=== PATIENT | female | born 2000 | race Caucasian/White ===

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

== ENCOUNTER 2021-03-28 02:03 | Emergency (ER) | payer SELFPAY ==
[2021-03-28 02:25] VITALS: BMI 22.9
[2021-03-28 05:05] LABS: BASO % 0.2 % (0-2.0); EOS % 0.9 % (0-4.5); HEMATOCRIT 35.5 % (32.4-45.2); HEMOGLOBIN 12.5 GM/dL (10.7-15.3); LYMPH % 32.9 % (8-40); MCH 31.2 pg (25.7-33.7); MCHC 35.3 g/dl (32.0-36.0); MEAN CELL VOLUME 88.6 fl (80-96); MEAN PLT VOLUME 8.1 fl (7.5-11.1); MONO % 5.4 % (3.8-10.2); NEUT % 60.6 % (42.8-82.8); PLATELET COUNT 199 K/MM3 (134-434); RBC 4.01 M/mm3 (3.60-5.2); RDW 13.6 % (11.6-15.6); WHITE BLOOD COUNT 7.2 K/mm3 (4.0-10.0)
[2021-03-28 05:24] LABS: INR 1.07 (0.83-1.09); PROTHROMBIN TIME (PATIENT) 12.9 SEC (9.7-13.0)
[2021-03-28 05:27] LABS: ACTIVATED PTT 31.1 SECONDS (25.2-36.5); CALCIUM 8.1 mg/dL (8.5-10.1)
[2021-03-28 05:28] LABS: ALBUMIN 3.8 g/dl (3.4-5.0); BLOOD UREA NITROGEN 7.7 mg/dL (7-18)
[2021-03-28 05:31] LABS: CREATININE 0.5 mg/dL (0.55-1.3)
[2021-03-28 05:33] LABS: BILIRUBIN,TOTAL 0.3 mg/dL (0.2-1); TOT PROT 7.4 g/dl (6.4-8.2)
[2021-03-28 05:56] LABS: EPI CELLS 6 /uL (0-25.1); HYALINE CASTS 1 /uL (0-3.1); URINE APPEARANCE CLEAR; URINE BACTERIA 63 /uL (0-1359); URINE BILIRUBIN NEGATIVE (NEGATIVE); URINE COLOR YELLOW; URINE GLUCOSE (UA) NEGATIVE (NEGATIVE); URINE KETONE NEGATIVE (NEGATIVE); URINE LEUK ESTERASE NEGATIVE (NEGATIVE); URINE NITRITE NEGATIVE (NEGATIVE); URINE PROTEIN NEGATIVE (NEGATIVE); URINE RBC 5 /uL (0-23.9); URINE WBC 2 /uL (0-25.8)
[2021-03-28] MEDS ORDERED: POTASSIUM CHLORIDE TABS 20 MEQ TABLET.ER (FP) PO ONE ×2 (09:15→10:36)
[2021-03-28 10:25] VITALS: TEMP 98.3
[2021-03-28] MEDS ORDERED: ACETAMINOPHEN 500 MG TABLET (FP) PO ONE (11:27)
[2021-03-28] MEDS ORDERED: ACETAMINOPHEN 325 MG TABLET (FP) ONE (11:30)
[2021-03-28 12:12] VITALS: BP 103/59; PULSE 60
== END 2021-03-28 12:25 | disposition home or self-care (01) ==
LOC: JER 02:03
DX: O20.0 Threatened abortion (principal)
CPT/HCPCS: 36415; 76817-TC; 80053; 81003; 84702; 85025; 85610; 85730; 87086; 99284-25

== ENCOUNTER 2021-03-30 11:53 | Emergency (ER) | payer SELFPAY ==
[2021-03-30 12:08] VITALS: BMI 21.6
[2021-03-30 14:02] VITALS: BP 95/63; PULSE 62; TEMP 97.9
== END 2021-03-30 14:09 | disposition home or self-care (01) ==
LOC: JER 11:53 → JERFT 11:53
DX: O20.0 Threatened abortion (principal); Z3A.00 Weeks of gestation of pregnancy not specified
CPT/HCPCS: 36415; 76817-TC; 84702; 99284-25

== ENCOUNTER 2021-11-20 20:00 | Inpatient (IN) | payer OTHER ==
[2021-11-20] MEDS ORDERED: AMPICILLIN - 2 GM in SODIUM CHLORIDE 100 ML IVPB ONE (21:08)
[2021-11-20] MEDS: ELECTROLYTE-148 SOLN 1,000 ML IV SCH (21:15)
[2021-11-20] MEDS ORDERED: OXYTOCIN 30 UNITS in 0.9% NS 30 UNIT/500 ML INFUS.BAG IVPB SCH (21:30)
[2021-11-20] MEDS ORDERED: AMPICILLIN SODIUM 2 GM VIAL ONE (21:34)
[2021-11-20 21:38] LABS: BASO % 0.2 % (0-2.0); EOS % 0.8 % (0-4.5); HEMATOCRIT 37.4 % (32.4-45.2); HEMOGLOBIN 12.9 GM/dL (10.7-15.3); LYMPH % 20.1 % (8-40); MCH 31.5 pg (25.7-33.7); MCHC 34.6 g/dl (32.0-36.0); MEAN PLT VOLUME 8.2 fl (7.5-11.1); NEUT % 72.9 % (42.8-82.8); PLATELET COUNT 189 10^3/uL (134-434); RBC 4.11 M/mm3 (3.60-5.2); RDW 13.1 % (11.6-15.6); WHITE BLOOD COUNT 9.3 K/mm3 (4.0-10.0)
[2021-11-20 21:47] LABS: INR 0.89 (0.83-1.09); PROTHROMBIN TIME (PATIENT) 10.2 SEC (9.7-13.0)
[2021-11-20 22:04] LABS: CALCIUM 8.9 mg/dL (8.5-10.1)
[2021-11-20 22:05] LABS: BLOOD UREA NITROGEN 10.1 mg/dL (7-18)
[2021-11-20 22:08] LABS: CREATININE 0.6 mg/dL (0.55-1.3)
[2021-11-20 22:40] VITALS: BMI 25.9
[2021-11-20] MEDS ORDERED: OXYTOCIN 30 UNITS in 0.9% NS 30 UNIT/500 ML INFUS.BAG IVPB ONE (23:39)
[2021-11-21] MEDS: AMPICILLIN - 1 GM in SODIUM CHLORIDE 100 ML IVPB SCH ×4 (02:00→19:17)
[2021-11-21] MEDS ORDERED: AMPICILLIN SODIUM 1 GM VIAL ONE ×3 (02:22→09:35)
[2021-11-21] MEDS ORDERED: FENTANYL/BUPIVACAINE/NS/PF - PCEA - 50 ML DISP.SYRIN EP ONE ×2 (04:59→10:18)
[2021-11-21] MEDS: ELECTROLYTE-148 SOLN 1,000 ML IV SCH (05:00)
[2021-11-21] MEDS ORDERED: NALOXONE HCL 0.4 MG/ML VIAL IVPUSH PRN (05:46)
[2021-11-21] MEDS ORDERED: BUPIVACAINE HCL/PF 0.25% (2.5MG/ML) 10 ML VIAL ONE (05:48)
[2021-11-21] MEDS: FENTANYL/BUPIVACAINE/NS/PF - PCEA - 50 ML DISP.SYRIN EP SCH ×2 (06:00→06:08)
[2021-11-21 10:45] LABS: POC NITRAZINE POS
[2021-11-21] MEDS ORDERED: CITRIC ACID/SODIUM CITRATE 30 ML UNIT-DOSE CUP PO ONE (11:14)
[2021-11-21] MEDS ORDERED: ONDANSETRON 4 MG/2 ML VIAL IVPUSH PRN (11:16)
[2021-11-21] MEDS ORDERED: morphine SULFATE/PF 1 MG/2 ML (2cc Syringe - QUVA) EP ONE ×2 (11:16)
[2021-11-21] MEDS ORDERED: LIDOCAINE HCL/EPINEPHRINE/PF 20 ML VIAL ONE (11:23)
[2021-11-21] MEDS ORDERED: morphine SULFATE/PF 1 MG/2 ML (2cc Syringe - QUVA) ONE ×3 (11:25)
[2021-11-21] MEDS ORDERED: ceFAZolin SODIUM 1 GM VIAL ONE (11:49)
[2021-11-21] MEDS ORDERED: SODIUM CHLORIDE 0.9% P/F 10 ML VIAL IJ ONE (11:49)
[2021-11-21] MEDS ORDERED: OXYTOCIN 10 UNITS/ML VIAL ONE ×2 (12:01→12:18)
[2021-11-21] MEDS ORDERED: IBUPROFEN 800 MG/8 ML IJ IVPB PRN (12:17)
[2021-11-21] MEDS ORDERED: METHYLERGONOVINE MALEATE 0.2 MG/1 ML AMP IM PRN (12:17)
[2021-11-21] MEDS: FERROUS SO4 325 MG TABLET (FP) PO SCH (17:13)
[2021-11-21] MEDS: OXYTOCIN 20 UNITS in 0.9% NS 20 UNIT/1,000 ML INFUS.BAG IV SCH (18:11)
[2021-11-22] MEDS ORDERED: oxyCODONE HCL 5 MG TABLET PO PRN (00:17)
[2021-11-22] MEDS: OXYTOCIN 20 UNITS in 0.9% NS 20 UNIT/1,000 ML INFUS.BAG IV SCH (02:00)
[2021-11-22] MEDS: IBUPROFEN 600 MG TABLET (FP) PO PRN ×3 (05:06→18:29)
[2021-11-22] MEDS: SIMETHICONE 80 MG TAB.CHEW (FP) PO PRN (05:06)
[2021-11-22 08:12] LABS: BASO % 0.2 % (0-2.0); EOS % 0.7 % (0-4.5); HEMATOCRIT 30.4 % (32.4-45.2); HEMOGLOBIN 10.4 GM/dL (10.7-15.3); LYMPH % 15.2 % (8-40); MCH 31.5 pg (25.7-33.7); MCHC 34.1 g/dl (32.0-36.0); MEAN CELL VOLUME 92.5 fl (80-96); MEAN PLT VOLUME 8.3 fl (7.5-11.1); MONO % 4.9 % (3.8-10.2); PLATELET COUNT 133 10^3/uL (134-434); RBC 3.29 M/mm3 (3.60-5.2); RDW 13.5 % (11.6-15.6); WHITE BLOOD COUNT 11.2 K/mm3 (4.0-10.0)
[2021-11-22] MEDS: FERROUS SO4 325 MG TABLET (FP) PO SCH ×2 (08:34→18:12)
[2021-11-22] MEDS: PRENATAL VITAMINS W/ FOLIC ACID TABLET (FP) PO SCH (10:07)
[2021-11-22] MEDS ORDERED: BISACODYL 10 MG SUPP.RECT RC PRN (12:17)
[2021-11-23] MEDS: IBUPROFEN 600 MG TABLET (FP) PO PRN ×4 (02:50→22:59)
[2021-11-23] MEDS: SIMETHICONE 80 MG TAB.CHEW (FP) PO PRN ×2 (02:50→23:01)
[2021-11-23] MEDS: ACETAMINOPHEN 325 MG TABLET (FP) PO PRN (04:03)
[2021-11-23] MEDS: FERROUS SO4 325 MG TABLET (FP) PO SCH ×2 (08:24→18:10)
[2021-11-23] MEDS: PRENATAL VITAMINS W/ FOLIC ACID TABLET (FP) PO SCH (09:59)
[2021-11-24] MEDS: ACETAMINOPHEN 325 MG TABLET (FP) PO PRN (00:14)
[2021-11-24 08:47] LABS: BASO % 0.2 % (0-2.0); EOS % 1.9 % (0-4.5); HEMATOCRIT 28.9 % (32.4-45.2); LYMPH % 21.3 % (8-40); MCHC 34.5 g/dl (32.0-36.0); MEAN CELL VOLUME 92.7 fl (80-96); MEAN PLT VOLUME 7.9 fl (7.5-11.1); MONO % 6.3 % (3.8-10.2); NEUT % 70.3 % (42.8-82.8); PLATELET COUNT 165 10^3/uL (134-434); RBC 3.12 M/mm3 (3.60-5.2); WHITE BLOOD COUNT 6.9 K/mm3 (4.0-10.0)
[2021-11-24] MEDS: FERROUS SO4 325 MG TABLET (FP) PO SCH (10:13)
[2021-11-24] MEDS: PRENATAL VITAMINS W/ FOLIC ACID TABLET (FP) PO SCH (10:13)
[2021-11-24] MEDS: IBUPROFEN 600 MG TABLET (FP) PO PRN (10:13)
[2021-11-24 10:50] VITALS: BP 96/61; PULSE 72; TEMP 97.9
== END 2021-11-24 16:10 | disposition home or self-care (01) | DRG 540 ==
LOC: JDEL 20:00 → JLDR 21:00 → J3W 11-21 13:40
PROVIDERS: ADMIT Obstetrics & Gynecology; ATTEND Obstetrics & Gynecology
PROC: 10D00Z1 Extraction of Products of Conception, Low, Open Approach (ICD-10-PCS; principal; 2021-11-21)
DX: O76 Abnormality in fetal heart rate and rhythm complicating labor and delivery (principal); O42.02 Full-term premature rupture of membranes, onset of labor within 24 hours of rupture; Z3A.39 39 weeks gestation of pregnancy; Z37.0 Single live birth
CPT/HCPCS: 36415; 80048; 83986-QW; 85025; 85610; 85730; 86780; 86850; 86900; 86901; 88307-TC; C9803; U0003; U0005